=== PATIENT | female | born 2000 | race Caucasian/White ===

== ENCOUNTER 2022-10-16 15:37 | Emergency (ER) | payer OTHER ==
[2022-10-16 17:20] LABS: Pregnancy Test - Urine (BHCG) POSITIVE (Negative); Pregu Control Background? CLEAR/WHITE (CLR/WHITE); Pregu Control Bar Appear? YES (CONTROL BAR)
== END 2022-10-16 17:44 | disposition home or self-care (01) ==
LOC: CSHERS 15:37
DX: J06.9 Acute upper respiratory infection, unspecified (principal); R11.2 Nausea with vomiting, unspecified; Z32.01 Encounter for pregnancy test, result positive
CPT/HCPCS: 81025; 99284

== ENCOUNTER 2023-05-29 20:45 | Day surgery (SDC) | payer OTHER ==
[2023-05-29 21:11] VITALS: BMI 25.5
[2023-05-29 21:59] LABS: Fetal Membranes Rupture No Membranes Rupture (No Rupture)
== END 2023-05-29 23:00 | disposition home or self-care (01) ==
LOC: CSHLD/OP 20:45
PROVIDERS: ATTEND Obstetrics & Gynecology
DX: O47.1 False labor at or after 37 completed weeks of gestation (principal); Z3A.37 37 weeks gestation of pregnancy
CPT/HCPCS: 84112

== ENCOUNTER 2023-06-11 05:30 | Inpatient (IN) | payer OTHER ==
[2023-06-11] MEDS: Lactated Ringer's 1,000 ML IV SCH (18:40)
[2023-06-11] MEDS ORDERED: Methylergonovine 0.2 MG/ML VIAL IM PRN (19:04)
[2023-06-11] MEDS ORDERED: Misoprostol 200 MCG TAB PR PRN (19:04)
[2023-06-11] MEDS ORDERED: hydrALAZINE 20 MG/ML VIAL SLOW IVP PRN (19:04)
[2023-06-11] MEDS ORDERED: Lidocaine 1% (PF) 30 ML VIAL SC PRN (19:04)
[2023-06-11] MEDS ORDERED: Ondansetron PF 4 MG/2 ML Vial IVP PRN (19:04)
[2023-06-11] MEDS ORDERED: fentaNYL 50 mcg/mL 1 mL Vial SLOW IVP PRN (19:04)
[2023-06-11] MEDS ORDERED: HYDROcodone/Acetaminophen 5/325 mg Tablet PO PRN ×2 (19:04)
[2023-06-11] MEDS ORDERED: Diphenoxylate HCl/Atropine Tablet PO PRN ×2 (19:04)
[2023-06-11] MEDS ORDERED: Promethazine HCl 25 MG/ML VIAL IM PRN (19:04)
[2023-06-11] MEDS ORDERED: Ibuprofen 800 MG TAB PO PRN (19:04)
[2023-06-11] MEDS ORDERED: Carboprost 250 MCG/ML AMP IM PRN (19:04)
[2023-06-11] MEDS ORDERED: Oxytocin 30 units/NS 500 ML 500 ML IV SCH ×2 (19:04)
[2023-06-11] MEDS ORDERED: Tranexamic Acid 1,000 MG/10 ML VIAL IVP PRN (19:04)
[2023-06-11 19:08] VITALS: BMI 24.0
[2023-06-11 19:17] LABS: Hematocrit 31.5 % (34.9-44.5); Hemoglobin 10.1 g/dL (12.0-15.5); Mean Corpuscular HGB CONC 32.1 g/dL (32.0-36.0); Mean Corpuscular Hemoglobin 25.5 pg (27.0-33.0); Mean Corpuscular Volume 79.5 fl (81.6-98.3); Mean Platelet Volume 10.4 fl (7.4-10.4); Platelet Count 273 10x3/uL (150-450); RBC Distribution Width 14.2 % (11.5-14.5); Red Blood Cell (RBC) Count 3.96 10x6/uL (3.90-5.03); White Blood Cell (WBC) Count 15.3 10x3/uL (3.5-10.5)
[2023-06-11 19:46] LABS: HBSAg Index 0.17 S/CO (0-0.99); Hep B Surf Ag - L&D Non-Reactive S/CO (NonReactive)
[2023-06-11] MEDS ORDERED: Bupivacaine 0.25% HCL 30 ML VIAL ONE (19:57)
[2023-06-11 22:40] LABS: Syphilis Antibody Nonreactive (Nonreactive); Syphilis Antibody Index 0.08 S/CO (<1.00 Non-Reactive)
[2023-06-12] MEDS: Misoprostol 100 MCG TAB VAG SCH ×2 (00:10→03:24)
[2023-06-12] MEDS ORDERED: fentaNYL/Ropivacaine Epidural 100 ML ONE (02:54)
[2023-06-12] MEDS ORDERED: diphenhydrAMINE 50 MG/ML VIAL IVP PRN (02:56)
[2023-06-12] MEDS ORDERED: Promethazine HCl 25 MG/ML VIAL IM PRN (02:56)
[2023-06-12] MEDS ORDERED: ePHEDrine Sulfate 50 MG/10 ML VIAL SLOW IVP PRN (02:56)
[2023-06-12] MEDS ORDERED: Naloxone HCl 0.4 mg/ml Vial IVP PRN ×2 (02:56)
[2023-06-12] MEDS ORDERED: Moisturizing Cream (Eucerin) 113 GM JAR TOP PRN (02:56)
[2023-06-12] MEDS ORDERED: Ondansetron PF 4 MG/2 ML Vial IVP PRN (02:56)
[2023-06-12] MEDS ORDERED: Acetaminophen 325 MG TAB PO PRN (02:56)
[2023-06-12] MEDS ORDERED: Lactated Ringer's 500 ML IV PRN (02:56)
[2023-06-12] MEDS ORDERED: fentaNYL 2 mcg/Ropivacaine 0.2% Epidural 100 ML CADD EPIDURAL SCH (03:00)
[2023-06-12] MEDS ORDERED: Communication Order-Pharmacy FS SCH (03:00)
[2023-06-12] MEDS: Lactated Ringer's 1,000 ML IV SCH ×2 (03:03→17:57)
[2023-06-12] MEDS ORDERED: Boostrix 0.5 ML (Tdap) VIAL (>/=7 yrs of age) IM ONE (18:22)
[2023-06-12] MEDS ORDERED: hydrALAZINE 20 MG/ML VIAL SLOW IVP PRN (18:22)
[2023-06-12] MEDS ORDERED: Milk Of Magnesia 30 ML UDCUP PO PRN (18:22)
[2023-06-12] MEDS ORDERED: Bisacodyl 10 MG SUPP PR PRN (18:22)
[2023-06-12] MEDS: Ibuprofen 800 MG TAB PO SCH (19:33)
[2023-06-12] MEDS: Docusate 100 MG CAP PO SCH (19:33)
[2023-06-12] MEDS ORDERED: HYDROcodone/Acetaminophen 5/325 mg Tablet PO PRN (21:05)
[2023-06-13 02:21] LABS: #Basophils 0.1 10x3/uL (0.0-0.2); #Eosinphils 0.2 10x3/uL (0.0-0.5); #Neutrophils 13.8 10x3/uL (1.5-8.4); %Basophils 0.3 % (0.0-2.0); %Eosinophils 0.8 % (0.0-6.0); %Lymphocytes 15.8 % (18.0-47.0); %Monocytes 5.4 % (0.0-10.0); %Neutrophils 76.6 % (40.0-75.0); Hematocrit 31.2 % (34.9-44.5); Hemoglobin 9.8 g/dL (12.0-15.5); Mean Corpuscular HGB CONC 31.4 g/dL (32.0-36.0); Mean Corpuscular Hemoglobin 25.3 pg (27.0-33.0); Mean Corpuscular Volume 80.4 fl (81.6-98.3); Mean Platelet Volume 9.9 fl (7.4-10.4); Platelet Count 242 10x3/uL (150-450); RBC Distribution Width 14.4 % (11.5-14.5); Red Blood Cell (RBC) Count 3.88 10x6/uL (3.90-5.03)
[2023-06-13] MEDS: Ibuprofen 800 MG TAB PO SCH (03:55)
[2023-06-13] MEDS ORDERED: Ferrous Sulfate 325 MG TAB PO SCH (08:00)
[2023-06-13 08:26] VITALS: BP 120/75; TEMP 98.1
[2023-06-13] MEDS: Docusate 100 MG CAP PO SCH (09:06)
== END 2023-06-13 11:35 | disposition home or self-care (01) | DRG 807 ==
LOC: CSHLD 18:10 → CSHPP 06-12 09:00
PROVIDERS: ADMIT Obstetrics & Gynecology; ATTEND Obstetrics & Gynecology
PROC: 10E0XZZ Delivery of Products of Conception, External Approach (ICD-10-PCS; principal; 2023-06-12)
PROC: 0UQMXZZ Repair Vulva, External Approach (ICD-10-PCS; 2023-06-12)
DX: O71.82 Other specified trauma to perineum and vulva (principal); Z37.0 Single live birth; Z3A.39 39 weeks gestation of pregnancy
CPT/HCPCS: 36415; 51702; 85025; 85027; 86780; 86850; 86900; 86901; 87340; J2590; J7120; S0020

== ENCOUNTER 2024-07-10 13:43 | Emergency (ER) | payer OTHER ==
[2024-07-10 14:28] LABS: Bilirubin Neg (Negative); Blood, Urine Negative (Negative); Clarity Slightly Cloudy (Clear); Glucose, Urine (Dipstick) Normal (Negative); Ketone, Urine 15 mg/dL (Negative); Leukocyte 100 (Negative); Nitrite Positive (Negative); Protein, Urine (Dipstick) 15 mg/dl (Neg-Trace); Specific Gravity, Urine 1.015 (1.005-1.030); Urobilinogen Normal mg/dL (Less than 2)
[2024-07-10 14:29] LABS: Pregnancy Test - Urine (BHCG) POSITIVE (Negative); Pregu Control Background? CLEAR/WHITE (CLR/WHITE); Pregu Control Bar Appear? YES (CONTROL BAR); Specific Gravity 1.015 (1.002-1.036)
[2024-07-10 14:33] LABS: #Basophils 0.02 10x3/uL (0.0-0.2); #Eosinophils 0.01 10x3/uL (0.0-0.5); #Monocytes 0.31 10x3/uL (0.0-1.1); #Neutrophils 7.24 10x3/uL (1.5-8.4); %Basophils 0.2 % (0.0-2.0); %Eosinophils 0.1 % (0.0-6.0); %Lymphocytes 17.4 % (18.0-47.0); %Monocytes 3.4 % (0.0-10.0); %Neutrophils 78.6 % (40.0-75.0); Hematocrit 43.1 % (34.9-44.5); Hemoglobin 14.5 g/dL (12.0-15.5); Mean Corpuscular HGB CONC 33.6 g/dL (32.0-36.0); Mean Corpuscular Hemoglobin 30.9 pg (27.0-33.0); Mean Corpuscular Volume 91.7 fL (81.6-98.3); Platelet Count 226 10x3/uL (150-450); RBC Distribution Width 12.2 % (11.5-14.5); White Blood Cell (WBC) Count 9.2 10x3/uL (3.5-10.5)
[2024-07-10] MEDS ORDERED: Ondansetron PF 4 MG/2 ML Vial ONE (14:42)
[2024-07-10 14:44] LABS: ALT (SGPT) 11 U/L (8-55); AST (SGOT) 15 U/L (5-34); Albumin 4.4 g/dL (3.5-5.0); Alkaline Phosphatase 41 U/L (40-110); Anion Gap 15 mmol/L (10-20); BUN (Urea Nitrogen) 7 mg/dL (7.0-18.7); Bilirubin, Total 0.5 mg/dL (0.2-1.2); Calc. Creatinine Clearance 0 mL/min (70-130); Carbon Dioxide 21 mmol/L (22-29); Chloride 105 mmol/L (98-107); Estimated GFR 126; Globulin 3.3 g/dL (2.4-3.5); Glucose 87 mg/dL (70-105); Protein, Total 7.7 g/dL (6.0-8.3); Sodium 137 mmol/L (136-145)
[2024-07-10 15:26] LABS: Bacteria/HPF 4+ HPF (None Seen); CAUTI Indications for Culture Pregnancy; RBC/HPF 0-3 HPF (0-3)
[2024-07-10 15:27] LABS: Mucous/LPF 2+ LPF (<2+)
[2024-07-10 15:28] LABS: Urine Culture Reflex No No; Urine Culture Reflex Yes Yes
== END 2024-07-10 15:55 | disposition home or self-care (01) ==
LOC: CSHERS 13:43
DX: O23.41 Unspecified infection of urinary tract in pregnancy, first trimester (principal); N39.0 Urinary tract infection, site not specified; R11.2 Nausea with vomiting, unspecified; Z55.0 Illiteracy and low-level literacy; Z3A.01 Less than 8 weeks gestation of pregnancy
CPT/HCPCS: 80053; 81001; 81025; 85025; 87077; 87086; 87186; 96361; 96374; J2405

== ENCOUNTER 2024-07-11 11:58 | Inpatient (IN) | payer OTHER ==
[2024-07-11 13:13] LABS: Bilirubin Neg (Negative); Blood, Urine Negative (Negative); Clarity Slightly Cloudy (Clear); Glucose, Urine (Dipstick) Normal (Negative); Ketone, Urine 5 mg/dL (Negative); Leukocyte 100 (Negative); Nitrite Negative (Negative); Protein, Urine (Dipstick) 15 mg/dl (Neg-Trace)
[2024-07-11 13:36] LABS: Bacteria/HPF 4+ HPF (None Seen); CAUTI Indications for Culture Pelvic or flank pain; RBC/HPF 0-3 HPF (0-3); Squamous Epithelial 0-3 HPF (0-3); WBC/HPF 21-50 HPF (0-3)
[2024-07-11 13:36] LABS: #Basophils 0.02 10x3/uL (0.0-0.2); #Eosinophils 0.03 10x3/uL (0.0-0.5); #Monocytes 0.41 10x3/uL (0.0-1.1); #Neutrophils 8.75 10x3/uL (1.5-8.4); %Basophils 0.2 % (0.0-2.0); %Eosinophils 0.3 % (0.0-6.0); %Lymphocytes 15.1 % (18.0-47.0); %Monocytes 3.8 % (0.0-10.0); %Neutrophils 80.2 % (40.0-75.0); Hematocrit 43.9 % (34.9-44.5); Hemoglobin 14.6 g/dL (12.0-15.5); Mean Corpuscular HGB CONC 33.3 g/dL (32.0-36.0); Mean Corpuscular Hemoglobin 30.6 pg (27.0-33.0); Mean Platelet Volume 10.3 fL (7.4-10.4); Platelet Count 231 10x3/uL (150-450); Red Blood Cell (RBC) Count 4.77 10x6/uL (3.90-5.03); White Blood Cell (WBC) Count 10.9 10x3/uL (3.5-10.5)
[2024-07-11 13:56] LABS: ALT (SGPT) 12 U/L (8-55); AST (SGOT) 16 U/L (5-34); Albumin 4.4 g/dL (3.5-5.0); Alkaline Phosphatase 41 U/L (40-110); Anion Gap 14 mmol/L (10-20); BUN (Urea Nitrogen) 6 mg/dL (7.0-18.7); Bilirubin, Total 0.6 mg/dL (0.2-1.2); Calc. Creatinine Clearance 0 mL/min (70-130); Calcium 9.7 mg/dL (7.8-10.44); Carbon Dioxide 20 mmol/L (22-29); Chloride 105 mmol/L (98-107); Estimated GFR 127; Globulin 3.2 g/dL (2.4-3.5); Glucose 87 mg/dL (70-105); Magnesium 1.9 mg/dL (1.6-2.6); Potassium 4.1 mmol/L (3.5-5.1); Protein, Total 7.6 g/dL (6.0-8.3); Sodium 135 mmol/L (136-145)
[2024-07-11] MEDS: Promethazine HCl 12.5 MG in Sodium Chloride 0.9% 50 ML IVPB SCH (14:15)
[2024-07-11] MEDS ORDERED: cefTRIAXone (ROCEPHIN) 1 GM VIAL ONE (17:16)
[2024-07-11] MEDS: CEFAZOLIN 1 GM in Sodium Chloride 0.9% 100 ML IVPB SCH (22:17)
[2024-07-11] MEDS: Metoclopramide HCl 10 MG (2 mL) VIAL IVP SCH (22:17)
[2024-07-11] MEDS: Ondansetron PF 4 MG/2 ML Vial IVP SCH (22:17)
[2024-07-11] MEDS: Lactated Ringer's 1,000 ML IV SCH (22:17)
[2024-07-12] MEDS: Famotidine/PF 20 mg/2ml Vial SLOW IVP SCH (08:20)
[2024-07-12] MEDS: Promethazine HCl 12.5 MG in Sodium Chloride 0.9% 50 ML IVPB PRN (17:13)
[2024-07-13] MEDS: Multivitamins, Adult 10 ML, Folic Acid 1 MG, Thiamine HCl 100 MG, Admixture Fee 1 EACH ... IV SCH (07:52)
[2024-07-13] MEDS: cefTRIAXone\\ROCEPHIN 1 GM in Sodium Chloride 0.9% 100 ML IVPB SCH (07:52)
[2024-07-13] MEDS: Ondansetron PF 4 MG/2 ML Vial IVP SCH (07:53)
[2024-07-13 08:16] LABS: ALT (SGPT) 17 U/L (8-55); AST (SGOT) 16 U/L (5-34); Albumin 3.2 g/dL (3.5-5.0); Alkaline Phosphatase 31 U/L (40-110); Anion Gap 11 mmol/L (10-20); BUN (Urea Nitrogen) 4 mg/dL (7.0-18.7); Bilirubin, Total 0.4 mg/dL (0.2-1.2); Calc. Creatinine Clearance 139 mL/min (70-130); Calcium 8.5 mg/dL (7.8-10.44); Carbon Dioxide 20 mmol/L (22-29); Chloride 109 mmol/L (98-107); Estimated GFR 128; Globulin 2.1 g/dL (2.4-3.5); Glucose 87 mg/dL (70-105); Potassium 3.9 mmol/L (3.5-5.1); Protein, Total 5.3 g/dL (6.0-8.3); Sodium 136 mmol/L (136-145)
[2024-07-13] MEDS ORDERED: Metoclopramide HCl 10 MG (2 mL) VIAL IVP SCH (09:00)
[2024-07-13] MEDS: Capsaicin 0.025% Cream 60 gm Tube TOP SCH (09:43)
[2024-07-13] MEDS: Promethazine HCl 12.5 MG, Admixture Fee 1 EACH in Sodium Chloride 0.9% 50 ML IVPB SCH (09:44)
[2024-07-14 07:13] LABS: ALT (SGPT) 49 U/L (8-55); AST (SGOT) 35 U/L (5-34); Albumin 3.2 g/dL (3.5-5.0); Alkaline Phosphatase 31 U/L (40-110); Anion Gap 12 mmol/L (10-20); BUN (Urea Nitrogen) 4 mg/dL (7.0-18.7); Bilirubin, Total 0.5 mg/dL (0.2-1.2); Calc. Creatinine Clearance 151 mL/min (70-130); Calcium 8.3 mg/dL (7.8-10.44); Carbon Dioxide 21 mmol/L (22-29); Chloride 109 mmol/L (98-107); Estimated GFR 130; Globulin 2.1 g/dL (2.4-3.5); Glucose 80 mg/dL (70-105); Magnesium 1.7 mg/dL (1.6-2.6); Potassium 3.6 mmol/L (3.5-5.1); Protein, Total 5.3 g/dL (6.0-8.3); Sodium 138 mmol/L (136-145)
[2024-07-14] MEDS: cefTRIAXone\\ROCEPHIN 1 GM in Sodium Chloride 0.9% 100 ML IVPB SCH (08:58)
[2024-07-14] MEDS: Metoclopramide HCl 10 MG (2 mL) VIAL IVP SCH (08:58)
[2024-07-14] MEDS: predniSONE 20 MG TAB PO SCH (08:59)
[2024-07-14 13:28] VITALS: BP 115/64; TEMP 98.5
[2024-07-17] MEDS ORDERED: predniSONE 10 MG TAB PO SCH (08:00)
[2024-07-20] MEDS ORDERED: predniSONE 5 MG TAB PO SCH (08:00)
== END 2024-07-14 16:00 | disposition home or self-care (01) | DRG 832 ==
LOC: CSHERS 11:58 → CSHPED 18:38 → OBSVTOIN 07-13 07:29
PROVIDERS: ADMIT Obstetrics & Gynecology; ATTEND Obstetrics & Gynecology
DX: O21.0 Mild hyperemesis gravidarum (principal); N39.0 Urinary tract infection, site not specified; O23.41 Unspecified infection of urinary tract in pregnancy, first trimester; O99.321 Drug use complicating pregnancy, first trimester; Z3A.01 Less than 8 weeks gestation of pregnancy; R82.71 Bacteriuria; B96.20 Unspecified Escherichia coli [E. coli] as the cause of diseases classified elsewhere; F12.90 Cannabis use, unspecified, uncomplicated
CPT/HCPCS: 36415; 76801; 80053; 81001; 81025; 82010; 83735; 84702; 85025; 87077; 87086; 87186; 96361; 96365; 96366; 96374; 96375; 96376; G0378; J0690; J0696; J2405; J2550; J2765; J3411; J3490; J7042; J7120; J7512

== ENCOUNTER 2024-07-23 05:11 | Inpatient (IN) | payer OTHER ==
[2024-07-23] MEDS ORDERED: Mag-Al 1200 mg/1200 mg/30 ML UDCUP ONE (05:24)
[2024-07-23] MEDS ORDERED: Lidocaine Viscous Sol 2% 15 ml UD Cup ONE (05:24)
[2024-07-23 05:51] LABS: #Basophils 0.03 10x3/uL (0.0-0.2); #Eosinophils 0.08 10x3/uL (0.0-0.5); #Monocytes 0.68 10x3/uL (0.0-1.1); #Neutrophils 12.11 10x3/uL (1.5-8.4); %Basophils 0.2 % (0.0-2.0); %Eosinophils 0.5 % (0.0-6.0); %Lymphocytes 11.7 % (18.0-47.0); %Monocytes 4.6 % (0.0-10.0); %Neutrophils 82.7 % (40.0-75.0); Hematocrit 43.4 % (34.9-44.5); Hemoglobin 15.2 g/dL (12.0-15.5); Mean Corpuscular Hemoglobin 30.6 pg (27.0-33.0); Mean Corpuscular Volume 87.3 fL (81.6-98.3); Mean Platelet Volume 9.8 fL (7.4-10.4); Platelet Count 316 10x3/uL (150-450); RBC Distribution Width 11.6 % (11.5-14.5); Red Blood Cell (RBC) Count 4.97 10x6/uL (3.90-5.03); White Blood Cell (WBC) Count 14.7 10x3/uL (3.5-10.5)
[2024-07-23 05:56] LABS: ALT (SGPT) 21 U/L (8-55); AST (SGOT) 16 U/L (5-34); Albumin 4.5 g/dL (3.5-5.0); Alkaline Phosphatase 45 U/L (40-110); Anion Gap 19 mmol/L (10-20); BUN (Urea Nitrogen) 11 mg/dL (7.0-18.7); Bilirubin, Total 0.8 mg/dL (0.2-1.2); Calc. Creatinine Clearance 0 mL/min (70-130); Calcium 10.3 mg/dL (7.8-10.44); Carbon Dioxide 20 mmol/L (22-29); Chloride 102 mmol/L (98-107); Estimated GFR 119; Globulin 3.4 g/dL (2.4-3.5); Glucose 124 mg/dL (70-105); Magnesium 1.8 mg/dL (1.6-2.6); Potassium 3.3 mmol/L (3.5-5.1); Protein, Total 7.9 g/dL (6.0-8.3); Sodium 138 mmol/L (136-145)
[2024-07-23 07:01] LABS: Bilirubin Neg (Negative); Blood, Urine 10 (Negative); Glucose, Urine (Dipstick) Normal (Negative); Ketone, Urine 150 mg/dL (Negative); Leukocyte 25 (Negative); Nitrite Negative (Negative); Protein, Urine (Dipstick) 30 mg/dl (Neg-Trace); Urobilinogen Normal mg/dL (Less than 2)
[2024-07-23 07:05] LABS: Clarity Hazy (Clear)
[2024-07-23 07:09] LABS: Bacteria/HPF 1+ HPF (None Seen); CAUTI Indications for Culture Pelvic or flank pain; Mucous/LPF 1+ LPF (<2+); RBC/HPF 0-3 HPF (0-3); Urine Culture Reflex No No
[2024-07-23] MEDS ORDERED: Ondansetron PF 4 MG/2 ML Vial ONE (07:39)
[2024-07-23 10:07] VITALS: BMI 20.7
[2024-07-23] MEDS: Famotidine/PF 20 mg/2ml Vial SLOW IVP SCH ×2 (10:39→21:18)
[2024-07-23] MEDS: Lactated Ringer's 1,000 ML IV SCH (10:44)
[2024-07-23] MEDS: Promethazine HCl 12.5 MG, Admixture Fee 1 EACH in Sodium Chloride 0.9% 50 ML IVPB SCH (11:42)
[2024-07-23] MEDS: Multivitamins, Adult 10 ML, Folic Acid 1 MG, Thiamine HCl 100 MG, Admixture Fee 1 EACH ... IV SCH (13:38)
[2024-07-23] MEDS: Potassium Chloride 10 MEQ in Premix 1 BAG IVPB SCH ×2 (15:46→15:51)
[2024-07-23] MEDS: Promethazine HCl 25 MG in Sodium Chloride 0.9% 50 ML IVPB ONE (16:46)
[2024-07-24] MEDS: Ondansetron PF 4 MG/2 ML Vial IVP PRN (01:41)
[2024-07-24 04:40] LABS: ALT (SGPT) 18 U/L (8-55); AST (SGOT) 16 U/L (5-34); Albumin 3.1 g/dL (3.5-5.0); Alkaline Phosphatase 30 U/L (40-110); Anion Gap 11 mmol/L (10-20); BUN (Urea Nitrogen) 6 mg/dL (7.0-18.7); Bilirubin, Total 0.7 mg/dL (0.2-1.2); Calc. Creatinine Clearance 145 mL/min (70-130); Calcium 8.4 mg/dL (7.8-10.44); Carbon Dioxide 22 mmol/L (22-29); Chloride 107 mmol/L (98-107); Estimated GFR 129; Globulin 2.2 g/dL (2.4-3.5); Glucose 76 mg/dL (70-105); Potassium 3.7 mmol/L (3.5-5.1); Protein, Total 5.3 g/dL (6.0-8.3); Sodium 136 mmol/L (136-145)
[2024-07-24 04:44] LABS: #Basophils 0.04 10x3/uL (0.0-0.2); #Monocytes 0.82 10x3/uL (0.0-1.1); #Neutrophils 6.76 10x3/uL (1.5-8.4); %Basophils 0.4 % (0.0-2.0); %Eosinophils 0.9 % (0.0-6.0); %Lymphocytes 26.7 % (18.0-47.0); %Monocytes 7.7 % (0.0-10.0); %Neutrophils 63.9 % (40.0-75.0); Hematocrit 33.8 % (34.9-44.5); Hemoglobin 11.4 g/dL (12.0-15.5); Mean Corpuscular HGB CONC 33.7 g/dL (32.0-36.0); Mean Corpuscular Volume 91.8 fL (81.6-98.3); Platelet Count 203 10x3/uL (150-450); RBC Distribution Width 11.5 % (11.5-14.5); Red Blood Cell (RBC) Count 3.68 10x6/uL (3.90-5.03); White Blood Cell (WBC) Count 10.6 10x3/uL (3.5-10.5)
[2024-07-24] MEDS: Dextrose 5%-Lactated Ringers 1,000 ML IV SCH (10:07)
[2024-07-25] MEDS: Lactated Ringer's 1,000 ML IV SCH (05:47)
[2024-07-25] MEDS ORDERED: Promethazine 25 MG TAB PO PRN (07:14)
[2024-07-25] MEDS ORDERED: Promethazine HCl 12.5 MG, Admixture Fee 1 EACH in Sodium Chloride 0.9% 50 ML IVPB PRN (07:15)
[2024-07-25 11:08] VITALS: BP 102/56; TEMP 98
[2024-07-25] MEDS: Promethazine 25 MG TAB PO SCH (11:17)
== END 2024-07-25 16:10 | disposition home or self-care (01) | DRG 833 ==
LOC: CSHERS 05:11 → CSHPED 10:02
PROVIDERS: ADMIT Obstetrics & Gynecology; ATTEND Obstetrics & Gynecology
DX: O21.1 Hyperemesis gravidarum with metabolic disturbance (principal); Z3A.08 8 weeks gestation of pregnancy; O20.8 Other hemorrhage in early pregnancy; Z90.89 Acquired absence of other organs; O99.341 Other mental disorders complicating pregnancy, first trimester; F32.A Depression, unspecified; Z79.899 Other long term (current) drug therapy; F12.90 Cannabis use, unspecified, uncomplicated
CPT/HCPCS: 36415; 76815; 80053; 81001; 83735; 84702; 85025; 87086; 96361; 96374; 96375; J2405; J2550; J3411; J3480; J3490; J7042; J7120; Q0169

== ENCOUNTER 2024-10-07 21:44 | Inpatient (IN) | payer OTHER ==
[2024-10-07 23:39] LABS: Bilirubin Neg (Negative); Blood, Urine 25 (Negative); Clarity Cloudy (Clear); Glucose, Urine (Dipstick) Normal (Negative); Ketone, Urine 50 mg/dL (Negative); Leukocyte 500 (Negative); Nitrite Positive (Negative); Protein, Urine (Dipstick) 100 mg/dl (Neg-Trace); Specific Gravity, Urine 1.015 (1.005-1.030)
[2024-10-08 00:02] LABS: Bacteria/HPF 4+ HPF (None Seen); CAUTI Indications for Culture Pelvic or flank pain; RBC/HPF 0-3 HPF (0-3); Squamous Epithelial 0-3 HPF (0-3); WBC/HPF Greater Than 50 HPF (0-3)
[2024-10-08 00:03] LABS: Urine Culture Reflex Yes Yes
[2024-10-08] MEDS ORDERED: Acetaminophen 500 MG TAB ONE (00:19)
[2024-10-08] MEDS ORDERED: cefTRIAXone (ROCEPHIN) 2 GM VIAL ONE (00:26)
[2024-10-08 01:03] LABS: BHCG - Serum POSITIVE (NEGATIVE)
[2024-10-08 01:04] LABS: Pregs Control Background? CLEAR/WHITE (CLR/WHITE); Pregs Control Bar Appear? YES (CONTROL BAR)
[2024-10-08 01:10] LABS: ALT (SGPT) 9 U/L (8-55); AST (SGOT) 15 U/L (5-34); Albumin 3.1 g/dL (3.5-5.0); Alkaline Phosphatase 47 U/L (40-110); Anion Gap 17 mmol/L (10-20); BUN (Urea Nitrogen) 12 mg/dL (7.0-18.7); Bilirubin, Total 0.6 mg/dL (0.2-1.2); Calc. Creatinine Clearance 0 mL/min (70-130); Calcium 8.9 mg/dL (7.8-10.44); Carbon Dioxide 16 mmol/L (22-29); Chloride 101 mmol/L (98-107); Estimated GFR 119; Globulin 3.9 g/dL (2.4-3.5); Glucose 95 mg/dL (70-105); Magnesium 1.4 mg/dL (1.6-2.6); Potassium 3.1 mmol/L (3.5-5.1); Sodium 131 mmol/L (136-145)
[2024-10-08 01:22] LABS: #Basophils 0.03 10x3/uL (0.0-0.2); #Eosinophils 0.09 10x3/uL (0.0-0.5); #Monocytes 0.75 10x3/uL (0.0-1.1); #Neutrophils 17.33 10x3/uL (1.5-8.4); %Basophils 0.2 % (0.0-2.0); %Eosinophils 0.5 % (0.0-6.0); %Lymphocytes 3.3 % (18.0-47.0); %Monocytes 3.9 % (0.0-10.0); %Neutrophils 91.2 % (40.0-75.0); Hematocrit 33.3 % (34.9-44.5); Hemoglobin 11.9 g/dL (12.0-15.5); Mean Corpuscular HGB CONC 35.7 g/dL (32.0-36.0); Mean Corpuscular Volume 89.5 fL (81.6-98.3); Mean Platelet Volume 10.9 fL (7.4-10.4); Platelet Count 173 10x3/uL (150-450); RBC Distribution Width 13.2 % (11.5-14.5); Red Blood Cell (RBC) Count 3.72 10x6/uL (3.90-5.03); White Blood Cell (WBC) Count 19.01 10x3/uL (3.5-10.5)
[2024-10-08 01:41] LABS: Lipase Less than 4 U/L (8-78)
[2024-10-08] MEDS ORDERED: Magnesium 2 GM/50 ML BAG (IN WATER) ONE (02:08)
[2024-10-08] MEDS ORDERED: Potassium Chloride 20 MEQ (100 mL) BAG ONE (02:08)
[2024-10-08] MEDS ORDERED: Docusate 100 MG CAP PO PRN (02:27)
[2024-10-08] MEDS ORDERED: Promethazine HCl 25 MG/ML VIAL IM PRN (02:27)
[2024-10-08] MEDS ORDERED: Acetaminophen 500 MG TAB PO PRN (02:27)
[2024-10-08] MEDS ORDERED: Oxytocin 30 units/NS 500 ML 500 ML IV SCH (02:30)
[2024-10-08 04:26] VITALS: BMI 22.9
[2024-10-08] MEDS: Lactated Ringer's 1,000 ML IV SCH (04:36)
[2024-10-08 04:46] LABS: #Basophils Less than 0.03 10x3/uL (0.0-0.2); #Eosinophils Less than 0.03 10x3/uL (0.0-0.5); #Monocytes 0.97 10x3/uL (0.0-1.1); #Neutrophils 14.01 10x3/uL (1.5-8.4); %Basophils 0.1 % (0.0-2.0); %Lymphocytes 5.1 % (18.0-47.0); %Monocytes 6.1 % (0.0-10.0); %Neutrophils 87.8 % (40.0-75.0); Hematocrit 29.4 % (34.9-44.5); Hemoglobin 9.8 g/dL (12.0-15.5); Mean Corpuscular HGB CONC 33.3 g/dL (32.0-36.0); Mean Corpuscular Hemoglobin 30.8 pg (27.0-33.0); Mean Corpuscular Volume 92.5 fL (81.6-98.3); Mean Platelet Volume 10.5 fL (7.4-10.4); Platelet Count 143 10x3/uL (150-450); Red Blood Cell (RBC) Count 3.18 10x6/uL (3.90-5.03); White Blood Cell (WBC) Count 15.96 10x3/uL (3.5-10.5)
[2024-10-08 04:50] LABS: ALT (SGPT) 10 U/L (8-55); AST (SGOT) 11 U/L (5-34); Albumin 2.3 g/dL (3.5-5.0); Alkaline Phosphatase 35 U/L (40-110); Anion Gap 14 mmol/L (10-20); BUN (Urea Nitrogen) 11 mg/dL (7.0-18.7); Bilirubin, Total 0.4 mg/dL (0.2-1.2); Calc. Creatinine Clearance 149 mL/min (70-130); Calcium 7.6 mg/dL (7.8-10.44); Carbon Dioxide 15 mmol/L (22-29); Chloride 108 mmol/L (98-107); Estimated GFR 126; Glucose 91 mg/dL (70-105); Magnesium 1.9 mg/dL (1.6-2.6); Potassium 3.3 mmol/L (3.5-5.1); Protein, Total 5.3 g/dL (6.0-8.3); Sodium 134 mmol/L (136-145)
[2024-10-08] MEDS ORDERED: traMADol HCl 50 MG TAB PO PRN (07:43)
[2024-10-08] MEDS: Acetaminophen 500 MG TAB PO PRN (08:33)
[2024-10-08] MEDS: FLU (Fluarix Triv) TS24-25(6MOS UP)/PF 45 MCG/0.5 ML Syringe IM ONE (08:47)
[2024-10-08] MEDS: Piperacillin/Tazobactam 3.375 GM in Sodium Chloride 0.9% 100 ML IVPB SCH ×2 (09:43→14:44)
[2024-10-08] MEDS: Ferrous Sulfate 300 MG (5 mL) UDCUP PO SCH (10:50)
[2024-10-08] MEDS ORDERED: cefTRIAXone\\ROCEPHIN 1 GM in Sodium Chloride 0.9% 100 ML IVPB SCH (21:00)
[2024-10-09] MEDS: Calcium Carbonate 500 MG ChewTAB PO PRN (02:46)
[2024-10-09 04:20] LABS: #Basophils Less than 0.03 10x3/uL (0.0-0.2); #Eosinophils Less than 0.03 10x3/uL (0.0-0.5); #Monocytes 0.88 10x3/uL (0.0-1.1); #Neutrophils 9.95 10x3/uL (1.5-8.4); %Basophils 0.1 % (0.0-2.0); %Eosinophils 0.1 % (0.0-6.0); %Lymphocytes 9.3 % (18.0-47.0); %Monocytes 7.3 % (0.0-10.0); %Neutrophils 82.5 % (40.0-75.0); Hematocrit 25.9 % (34.9-44.5); Mean Corpuscular HGB CONC 34.7 g/dL (32.0-36.0); Mean Corpuscular Hemoglobin 31.8 pg (27.0-33.0); Mean Corpuscular Volume 91.5 fL (81.6-98.3); Mean Platelet Volume 10.4 fL (7.4-10.4); Platelet Count 145 10x3/uL (150-450); RBC Distribution Width 13.5 % (11.5-14.5); Red Blood Cell (RBC) Count 2.83 10x6/uL (3.90-5.03); White Blood Cell (WBC) Count 12.05 10x3/uL (3.5-10.5)
[2024-10-09 04:35] LABS: ALT (SGPT) 13 U/L (8-55); AST (SGOT) 13 U/L (5-34); Albumin 2.2 g/dL (3.5-5.0); Alkaline Phosphatase 39 U/L (40-110); Anion Gap 10 mmol/L (10-20); BUN (Urea Nitrogen) 8 mg/dL (7.0-18.7); Bilirubin, Total 0.4 mg/dL (0.2-1.2); Calc. Creatinine Clearance 166 mL/min (70-130); Calcium 8.2 mg/dL (7.8-10.44); Carbon Dioxide 19 mmol/L (22-29); Chloride 107 mmol/L (98-107); Estimated GFR 130; Globulin 2.9 g/dL (2.4-3.5); Glucose 85 mg/dL (70-105); Potassium 3.2 mmol/L (3.5-5.1); Protein, Total 5.1 g/dL (6.0-8.3); Sodium 133 mmol/L (136-145)
[2024-10-09] MEDS: Lactated Ringer's 1,000 ML IV SCH (04:54)
[2024-10-09 07:11] LABS: Magnesium 1.9 mg/dL (1.6-2.6)
[2024-10-09] MEDS: Ondansetron PF 4 MG/2 ML Vial IVP PRN (07:40)
[2024-10-09] MEDS ORDERED: Ferrous Sulfate 300 MG (5 mL) UDCUP PO SCH (08:00)
[2024-10-09] MEDS: Ferrous Sulfate 300 MG (5 mL) UDCUP PO SCH (09:38)
[2024-10-09] MEDS: Potassium Chloride 20 MEQ TAB PO SCH (09:38)
[2024-10-09] MEDS: Potassium Chloride 20 MEQ in Premix 1 BAG IVPB SCH (09:38)
[2024-10-09] MEDS: Multivitamins, Adult 10 ML, Folic Acid 1 MG, Thiamine HCl 100 MG, Admixture Fee 1 EACH ... IV SCH (12:28)
[2024-10-10] MEDS: Famotidine/PF 20 mg/2ml Vial SLOW IVP SCH (03:32)
[2024-10-10 04:04] LABS: #Basophils Less than 0.03 10x3/uL (0.0-0.2); #Eosinophils 0.04 10x3/uL (0.0-0.5); #Monocytes 0.59 10x3/uL (0.0-1.1); #Neutrophils 6.21 10x3/uL (1.5-8.4); %Basophils 0.1 % (0.0-2.0); %Eosinophils 0.5 % (0.0-6.0); %Lymphocytes 13.4 % (18.0-47.0); %Monocytes 7.4 % (0.0-10.0); Hematocrit 25.2 % (34.9-44.5); Hemoglobin 8.3 g/dL (12.0-15.5); Mean Corpuscular HGB CONC 32.9 g/dL (32.0-36.0); Mean Corpuscular Hemoglobin 30.6 pg (27.0-33.0); Mean Platelet Volume 10.4 fL (7.4-10.4); Platelet Count 151 10x3/uL (150-450); RBC Distribution Width 13.5 % (11.5-14.5); Red Blood Cell (RBC) Count 2.71 10x6/uL (3.90-5.03); White Blood Cell (WBC) Count 7.97 10x3/uL (3.5-10.5)
[2024-10-10 04:22] LABS: ALT (SGPT) 18 U/L (8-55); AST (SGOT) 18 U/L (5-34); Albumin 2.1 g/dL (3.5-5.0); Alkaline Phosphatase 58 U/L (40-110); Anion Gap 10 mmol/L (10-20); BUN (Urea Nitrogen) 7 mg/dL (7.0-18.7); Bilirubin, Total 0.4 mg/dL (0.2-1.2); Calc. Creatinine Clearance 174 mL/min (70-130); Calcium 8.3 mg/dL (7.8-10.44); Carbon Dioxide 19 mmol/L (22-29); Chloride 110 mmol/L (98-107); Estimated GFR 131; Globulin 2.9 g/dL (2.4-3.5); Glucose 74 mg/dL (70-105); Lipase 4 U/L (8-78); Potassium 3.5 mmol/L (3.5-5.1); Sodium 135 mmol/L (136-145)
[2024-10-10] MEDS: Sucralfate 1 GM TAB PO SCH (10:05)
[2024-10-10] MEDS: Pantoprazole 40 MG VIAL IVP SCH (10:07)
[2024-10-10] MEDS: Lactated Ringer's 1,000 ML IV SCH (10:13)
[2024-10-11 04:11] LABS: #Basophils Less than 0.03 10x3/uL (0.0-0.2); #Eosinophils 0.08 10x3/uL (0.0-0.5); #Monocytes 0.51 10x3/uL (0.0-1.1); #Neutrophils 3.47 10x3/uL (1.5-8.4); %Basophils 0.4 % (0.0-2.0); %Eosinophils 1.4 % (0.0-6.0); %Lymphocytes 26.3 % (18.0-47.0); %Monocytes 9.1 % (0.0-10.0); %Neutrophils 62.1 % (40.0-75.0); Hemoglobin 8.5 g/dL (12.0-15.5); Mean Corpuscular Hemoglobin 31.6 pg (27.0-33.0); Mean Corpuscular Volume 92.9 fL (81.6-98.3); Mean Platelet Volume 10.2 fL (7.4-10.4); Platelet Count 164 10x3/uL (150-450); RBC Distribution Width 13.5 % (11.5-14.5); Red Blood Cell (RBC) Count 2.69 10x6/uL (3.90-5.03); White Blood Cell (WBC) Count 5.59 10x3/uL (3.5-10.5)
[2024-10-11 04:33] LABS: ALT (SGPT) 16 U/L (8-55); AST (SGOT) 12 U/L (5-34); Alkaline Phosphatase 64 U/L (40-110); Anion Gap 9 mmol/L (10-20); BUN (Urea Nitrogen) 7 mg/dL (7.0-18.7); Bilirubin, Total 0.2 mg/dL (0.2-1.2); Calc. Creatinine Clearance 174 mL/min (70-130); Calcium 8.1 mg/dL (7.8-10.44); Carbon Dioxide 22 mmol/L (22-29); Chloride 110 mmol/L (98-107); Estimated GFR 131; Globulin 2.9 g/dL (2.4-3.5); Glucose 83 mg/dL (70-105); Potassium 3.8 mmol/L (3.5-5.1); Protein, Total 4.9 g/dL (6.0-8.3); Sodium 137 mmol/L (136-145)
[2024-10-11 07:51] VITALS: BP 100/55; TEMP 98.1
== END 2024-10-11 11:45 | disposition home or self-care (01) | DRG 832 ==
LOC: CSHERS 21:44 → CSHTELE 10-08 02:38 → OBSVTOIN 10-09 08:14 → CSHANTE 10-10 22:15
PROVIDERS: ADMIT Family Medicine; ATTEND Family Medicine
DX: O23.02 Infections of kidney in pregnancy, second trimester (principal); E87.1 Hypo-osmolality and hyponatremia; O99.282 Endocrine, nutritional and metabolic diseases complicating pregnancy, second trimester; Z3A.18 18 weeks gestation of pregnancy; E87.6 Hypokalemia; E83.42 Hypomagnesemia; O99.891 Other specified diseases and conditions complicating pregnancy; O99.012 Anemia complicating pregnancy, second trimester; O99.612 Diseases of the digestive system complicating pregnancy, second trimester; K21.9 Gastro-esophageal reflux disease without esophagitis; K29.70 Gastritis, unspecified, without bleeding; D50.9 Iron deficiency anemia, unspecified; Z79.899 Other long term (current) drug therapy
CPT/HCPCS: 36415; 71048; 76815; 80053; 81001; 83605; 83690; 83735; 84703; 85025; 87040; 87077; 87086; 87186; 87428; 93005; 93010; 96374; 96375; 96376; G0378; J0696; J2405; J2470; J2543; J3411; J3475; J3480; J3490; J7042; J7120

== ENCOUNTER 2024-10-23 12:21 | Outpatient (CLI) | payer OTHER | END 2024-10-23 12:22 | disposition home or self-care (01) | LOC: CSHULT 12:21 | DX: Z34.92 Encounter for supervision of normal pregnancy, unspecified, second trimester (principal); Z3A.21 21 weeks gestation of pregnancy | CPT/HCPCS: 76805 ==